=== PATIENT | male | born 1985 | race Caucasian/White ===

== ENCOUNTER 2017-12-24 12:54 | Emergency (ER) | payer OTHER ==
[2017-12-24] MEDS ORDERED: Thiamine IV 100 MG, Folic Acid IV* 1 MG, Multiple Vitamin IV ADULT* 10 ML in D5NS 0.9% ... IV ONE (15:53)
[2017-12-24 16:37] LABS: ABS Basophils 0.1 10^3/ul (0-0.2); ABS Eosinophils 0.1 10^3/ul (0-0.6); ABS Lymphocytes 2.8 10^3/ul (1.0-4.8); ABS Monocytes 0.7 10^3/ul (0-0.8); ABS Neutrophils 4.1 10^3/ul (1.5-7.7); ABS Nucleated RBC 0 10^3/ul; Eosinophil % 1.9 % (0-6); Hematocrit 42 % (42-52); Hemoglobin 14.6 g/dl (14.0-18.0); Lymphocyte % 35.8 % (25-47); Mean Corpuscular HGB Conc 35 g/dl (31-36); Mean Corpuscular Hemoglobin 32 pg (27-31); Mean Corpuscular Volume 92 fL (80-94); Mean Platelet Volume 7.2 um3 (7.4-10.4); Nucleated Red Blood Cells % 0; Platelet Count 302 10^3/ul (150-450); Red Blood Count 4.61 10^6/ul (4.0-5.4); Red Cell Distribution Width 14 % (10.5-15); White Blood Count 7.7 10^3/ul (3.5-10.8)
[2017-12-24 17:50] LABS: Urine Appearance Clear; Urine Blood Negative (Negative); Urine Color Yellow; Urine Ketones Negative (Negative); Urine Protein Negative (Negative); Urine Specific Gravity 1.012 (1.010-1.030); Urine Urobilinogen Negative (Negative)
[2017-12-24] MEDS ORDERED: LORazepam TAB(*) 1 MG PO ONE ×2 (19:09→23:21)
[2017-12-24] MEDS ORDERED: Mouth Piece, Nicotine* 1 EACH CARTRIDGE INH PRN (19:21)
[2017-12-24] MEDS ORDERED: Nicotine Inhaler* 10 MG AMP INH ONE (19:21)
[2017-12-24] MEDS ORDERED: Mouth Piece, Nicotine* 1 EACH CARTRIDGE ONE (19:44)
--- NOTE | 2017-12-25 06:06 | ED ---
Ritchie Lester Sixian, scribed for Enoc Kaplan MD on 12/25/17 at 0600 . Progress - Progress Note Progress Note: This patient is a 32 year old M presenting to ED with a chief complaint of SI and alcohol intoxication. The pt was evaluated and medically cleared for transfer. - Results/Orders Results/Orders: General: well-appearing, no pain distress Skin: warm, color reflects adequate perfusion, dry Head: normal Eyes: EOMI, ESEQUIEL ENT: normal Neck: supple, nontender Respiratory: CTA, breath sounds present Cardiovascular: RRR Abdomen: soft, nontender Bowel: present Musculoskeletal: normal, strength/ROM intact Neurological: normal, sensory/motor intact, A&O x3 Psychological: affect/mood appropriate - Consult/PCP Time Called: 21:00 Course/Dx - Course Course Of Treatment: BP noted and advised to follow up with PCP. Medications reviewed. Patient was cleared medically for MHE. After his MHE he is to be admitted to a MHU. Transfer to another [facility]HU as [facility] [place]. - Diagnoses Provider Diagnoses: Alcohol abuse, Suicidal ideation Discharge - Sign-Out/Discharge Documenting (check all that apply): Discharge - Transfer to another mental health facility [facility] - Discharge Plan Condition: Stable Disposition: PSYCHIATRIC FACILITY-OTHER Referrals: Anjana Smalls [Primary Care Provider] - Additional Instructions: RETURN TO THE EMERGENCY DEPARTMENT FOR CHANGING OR WORSENING SYMPTOMS. - Billing Disposition and Condition Condition: STABLE Disposition: PSY-OTH The documentation as recorded by the Ritchie sutherland Sixian accurately reflects the service I personally performed and the decisions made by , Enoc Kaplan MD.
[2017-12-25] MEDS ORDERED: LORazepam TAB(*) 1 MG PO ONE ×2 (06:50→16:53)
[2017-12-25] MEDS ORDERED: Mouth Piece, Nicotine* 1 EACH CARTRIDGE INH PRN (07:52)
[2017-12-25] MEDS ORDERED: Nicotine Inhaler* 10 MG AMP ONE (07:54)
[2017-12-25] MEDS: Nicotine Inhaler* 10 MG AMP INH PRN ×4 (07:57→16:01)
[2017-12-25] MEDS ORDERED: Ibuprofen TAB* 600 MG PO ONE (08:45)
--- NOTE | 2017-12-25 08:45 | PN ---
ED Flex Patient Progress Note Date of Service: 12/25/17 Subjective: This is a 32 year-old M who is pending transfer to another psychiatric facility secondary to SI and ETOH intoxication Pt states slept okay. He has a mild headache requesting ibuprofen for. Objective: Vitals: Most recent vital signs documented below. General NAD, Alert and oriented x3. Heart: rrr at 70 bpm Lungs: CTA or with rales, rhonchi, wheezing abd: soft nontender Laboratory: Current laboratory results documented below. Assessment: SI Plan: Pending psychiatric to transfer will follow up daily until accepted at facility condition:Stable disposition:transfer Vital Signs Temp Pulse Resp BP Pulse Ox 97.5 F 83 18 150/58 100 12/25/17 07:59 12/25/17 07:59 12/25/17 07:59 12/25/17 07:59 12/25/17 07:59 Lab Results - Entire Visit 12/24/17 12/24/17 12/24/17 17:30 17:30 16:27 WBC 7.7 RBC 4.61 Hgb 14.6 Hct 42 MCV 92 MCH 32 H MCHC 35 RDW 14 Plt Count 302 MPV 7.2 L Neut % (Auto) 52.7 Lymph % (Auto) 35.8 [place] % (Auto) 8.5 H Eos % (Auto) 1.9 Baso % (Auto) 1.1 Absolute Neuts (auto) 4.1 Absolute Lymphs (auto) 2.8 Absolute Monos (auto) 0.7 Absolute Eos (auto) 0.1 Absolute Basos (auto) 0.1 Absolute Nucleated RBC 0 Nucleated RBC % 0 Sodium Potassium Chloride Carbon Dioxide Anion Gap BUN Creatinine Est GFR ( Amer) Est GFR (Non-Af Amer) BUN/Creatinine Ratio Glucose Calcium Total Bilirubin AST ALT Alkaline Phosphatase Total Protein Albumin Globulin Albumin/Globulin Ratio TSH Urine Color Yellow Urine Appearance Clear Urine pH 5.0 Ur Specific [place] 1.012 Urine Protein Negative Urine Ketones Negative Urine Blood Negative Urine Nitrate Negative Urine Bilirubin Negative Urine Urobilinogen Negative Ur Leukocyte Esterase Negative Urine Glucose Negative Salicylates Urine Opiates Screen None detected Acetaminophen Ur Barbiturates Screen None detected Ur Phencyclidine Scrn None detected Ur Amphetamines Screen None detected U Benzodiazepines Scrn None detected Urine Cocaine Screen None detected U Cannabinoids Screen None detected Serum Alcohol 12/24/17 16:27 WBC RBC Hgb Hct MCV MCH MCHC RDW Plt Count MPV Neut % (Auto) Lymph % (Auto) [place] % (Auto) Eos % (Auto) Baso % (Auto) Absolute Neuts (auto) Absolute Lymphs (auto) Absolute Monos (auto) Absolute Eos (auto) Absolute Basos (auto) Absolute Nucleated RBC Nucleated RBC % Sodium 139 Potassium 3.9 Chloride 103 Carbon Dioxide 27 Anion Gap 9 BUN 12 Creatinine 0.87 Est GFR ( Amer) 132.5 Est GFR (Non-Af Amer) 103.0 BUN/Creatinine Ratio 13.8 Glucose 105 H Calcium 9.3 Total Bilirubin 0.30 AST 31 ALT 19 Alkaline Phosphatase 48 Total Protein 7.3 Albumin 4.2 Globulin 3.1 Albumin/Globulin Ratio 1.4 TSH 0.54 Urine Color Urine Appearance Urine pH Ur Specific [place] Urine Protein Urine Ketones Urine Blood Urine Nitrate Urine Bilirubin Urine Urobilinogen Ur Leukocyte Esterase Urine Glucose Salicylates < 2.50 Urine Opiates Screen Acetaminophen < 15 Ur Barbiturates Screen Ur Phencyclidine Scrn Ur Amphetamines Screen U Benzodiazepines Scrn Urine Cocaine Screen U Cannabinoids Screen Serum Alcohol 183 H
[2017-12-25] MEDS ORDERED: Acetaminophen TAB* 325 MG PO PRN (12:44)
[2017-12-25] MEDS ORDERED: Diazepam TAB(*) 10 MG PO SCH (13:00)
[2017-12-25] MEDS ORDERED: LORazepam TAB(*) 1 MG PO SCH (13:00)
[2017-12-25] MEDS ORDERED: Bupivacaine 0.25% SDV* 30 ML ONE (14:00)
--- NOTE | 2017-12-25 16:18 | PN ---
Subjective - Subjective Date of Service: 12/25/17 Service Type: 97106 Hosp care 35 min high complexity Subjective: Lety is a 32 y/o [place] with no prior psychiatric hospitalization who brought self to the [facility] due to alcohol intoxication and suicidal thoughts without any plans. Lety has a established diagnosis of PTSD for which he is 40% service connected and sees Dr. Moreno at [place] [facility] and also has a counselor. He is inconsistant with his appointments and treatments rather keeps drinking almost on regular basis. Says he trie to drink modestly but unable to do so. He was prescribed Antabuse and he never took it. Never had gone for rehab ar even self help groups. He is employed, in school, single with no children but has lots of drinking buddies. Does not think he has any problem with alcohol and not ready for rehab. During the assessment he denied ongoing mood, thoughts or perceptual disturbances. Denies current thoughts for self harm or harming others. Thinks about suicide when intoxicated and knows how to ask for help and that's why he came to the ED yesterday. Today he is showing a superficial interest to try rehab if approved by [place]. No physical health problems and labs are WNL. Not in any withdrawals. Objective - Appearance Appearance: Well Developed/Nourished Dysmorphic Features: No Hygiene: Normal Grooming: Fairly Well Kept - Behavior Psychomotor Activities: Normal Exhibits Abnormal Movement: No - Attitude and Relatedness Attitude and Relatedness: Appropriate Eye Contact: Fair - Speech Quality: Unpressured Latencies: Normal Quantity: Appropriate - Mood Patient's Decription of Mood: "Fine" - Affect Observed Affect: Good Affect Consistent with: Euthymia - Thought Process Patient's Thought Process: Coherent, Goal Directed Thought Content: No Passive Wish, No Suicidal Planning, No Homicidal Ideation, No Paranoid Ideation - Sensorium Experiencing Hallucinations: No, Sensorium is Clear Type of Hallucinations: Visual: No, Auditory: No, Command: No - Level of Consciousness Level of Consciousness: Alert Orientation: Yes Intact, Yes Orientated to Time, Yes Orientated to Place, Yes Orientated to Person - Impulse Control Impulse Control: Intact - Insight and Judgement Insight and Judgement: Fair Assessment - Assessment Merits Inpatient Hospitalization: Pending Safe DC Plan Clinical Impression: 32 y/o WM with h/o PTSD from [place] who also has an extensive h/o Alcohol use d/o presented to the ED intoxicated and suicidal at that time. Plan was to admit him om [facility] for his safety and treatments. An attempt to transfer him to other hospital preferably [facility] was unsuccessful due to their resistance and we didn't have any bed here. Patient this morning sobered up and denies any suicidal/homicidal thoughts and is not in acute psychiatric crisis either. Hence at this time we don't see any clinical reason to hold or [facility] will. Safe act reporting was done and we will call his support system and give him referal to see this [place] providers and a referal to Local rehab programs. Plan - Plan Treatment Plan: Name: LETY LEE Birthdate: 1985 [id number] Continued Medication Management: Continue Outpt Medication Medications: Current Medications Acetaminophen (Tylenol Tab*) 650 mg PO Q4H PRN PRN Reason: PAIN Device (Nicotine Mouth Piece*) 1 each INH .USE WITH NICOTROL PRN PRN Reason: CRAVING Last Admin: 12/24/17 19:48 Dose: 1 each Device (Nicotine Mouth Piece*) 1 each INH .USE WITH NICOTROL PRN PRN Reason: CRAVING Folic Acid (Folvite Tab*) 1 mg PO DAILY SIMA Lorazepam (Ativan Tab(*)) 0 - 6 mg PO .PER [facility] PROTOCOL SIMA PRN Reason: Protocol Last Admin: 12/25/17 13:04 Dose: 2 mg Multivitamins/Minerals (Theragran/Minerals Tab*) 1 tab PO DAILY [facility] Nicotine (Nicotine Inhaler*) 10 mg INH Q2H PRN PRN Reason: CRAVING Last Admin: 12/25/17 14:15 Dose: 10 mg Thiamine HCl (Vitamin B-1 Tab*) 100 mg PO DAILY SIMA - Discharge Plan Discharge Plan: Drug/Alcohol Rehab Outpatient Program: [facility].
[2017-12-25 17:59] VITALS: BP 152/88
--- NOTE | 2017-12-25 21:10 | ED ---
Oumar Lester Tiffany, scribed for Adelaide Gibson MD on 12/25/17 at 1353 . Progress - Progress Note Progress Note: This patient is a 32 year old male presenting with suicidal ideation and alcoholism, requesting alcohol detox. I was aksed to evaluate patient by [facility]ygl[facility] technician because pt may need 2PC transfer to the [place] [facility] because he is a of the [place]. Patient reports that he is not currently suicidal because he is sober. Only wants to stay away from alcohol, does not want to be involuntarily admitted. States he has guns locked up in his home. Denies chest pain, abdominal pain, shortness of breath and nausea. Patient is a with history of depression and suicidal ideation, both of which worsen when drinking. Also has history of alcoholism. States family history of depression on maternal and paternal sides. Requests gabapentin medication, states he takes 600 mg three times daily, had one dose yesterday and none today. Course/Dx - Course Course Of Treatment: Patient medications reviewed this visit. Since patient is a , [place] requires 2 PC for admission and transfer to [facility]. Patient cannot be admitted at [facility] because beds are full. Per Claudia, Dr. Parker evaluated patient and found that patient does not meet admission or transfer criteria. Patient will be discharged, agreeable to this plan. Discharge - Sign-Out/Discharge Documenting (check all that apply): Discharge - Discharge Plan Condition: Stable Disposition: HOME Patient Education Materials: Alcohol Withdrawal (ED), Suicide Prevention for Adults (ED), Alcohol Use Disorder (ED) Referrals: Anjana Smalls [Primary Care Provider] - - Billing Disposition and Condition Condition: STABLE Disposition: HOME The documentation as recorded by the Oumar sutherland Tiffany accurately reflects the service I personally performed and the decisions made by me, Adelaide Gibson MD.
[2017-12-26] MEDS ORDERED: Multivitamins/Minerals TAB PO SCH (09:00)
[2017-12-26] MEDS ORDERED: Thiamine TAB* 100 MG TAB PO SCH (09:00)
[2017-12-26] MEDS ORDERED: Folic Acid TAB* 1 MG PO SCH (09:00)
== END 2017-12-25 17:45 | disposition home or self-care (01) ==
LOC: ED 12:54
DX: R45.851 Suicidal ideations (principal); F10.129 Alcohol abuse with intoxication, unspecified
CPT/HCPCS: 36415; 80053; 80307; 80320; 80329; 81003; 84443; 85025; 93005; 99284; A9270-GY; G0480; J3411